=== PATIENT | female | born 1980 | race Caucasian/White ===

== ENCOUNTER 2018-08-07 13:04 | Emergency (ER) | payer OTHER ==
[2018-08-07 13:07] VITALS: RESP 16
[2018-08-07 13:50] LABS: Anisocytosis Slight; Basophils % (A) 0 %; Eosinophils # (A) 0.1 k/uL (0-0.7); Eosinophils % (A) 1 %; HCT 32.8 % (34.0-46.0); HGB 10.4 gm/dL (11.4-16.0); Lymphocytes # (A) 0.8 k/uL (1.0-4.8); Lymphocytes % (A) 14 %; MCH 27.7 pg (25.0-35.0); MCHC 31.8 g/dL (31.0-37.0); Monocytes # (A) 0.3 k/uL (0-1.0); Monocytes % (A) 5 %; Neutrophils # (A) 4.8 k/uL (1.3-7.7); Neutrophils % (A) 79 %; Platelet Count 382 k/uL (150-450); RBC 3.77 m/uL (3.80-5.40); RDW 19.3 % (11.5-15.5); WBC 6.1 k/uL (3.8-10.6)
[2018-08-07 14:00] LABS: ALT 10 U/L (9-52); AST 13 U/L (14-36); African American GFR (CKD) >90 (>60 ml/min/1.73 sqM); Albumin 2.3 g/dL (3.5-5.0); Alkaline Phosphatase 88 U/L (38-126); Amylase <30 U/L (30-110); Anion Gap 4 mmol/L; Blood Urea Nitrogen 14 mg/dL (7-17); Calcium 8.1 mg/dL (8.4-10.2); Carbon Dioxide 26 mmol/L (22-30); Chloride 107 mmol/L (98-107); Glucose 120 mg/dL (74-99); Lipase 200 U/L (23-300); Sodium 137 mmol/L (137-145); Total Bilirubin 0.1 mg/dL (0.2-1.3); Total Protein 5.1 g/dL (6.3-8.2)
[2018-08-07] MEDS ORDERED: HYDROmorphone 0.5 MG/0.5 ML SYRINGE IVP STA ×2 (14:40→15:53)
[2018-08-07 15:08] LABS: Appearance,Urine Cloudy (Clear); Bilirubin,Urine Negative (Negative); Blood,Urine Negative (Negative); Color,Urine Yellow; Glucose,Urine (UA) Negative (Negative); Ketones,Urine Trace (Negative); Leukocyte Esterase,Urine Negative (Negative); Mucus,Urine Many /hpf; Nitrite,Urine Negative (Negative); Protein,Urine 1+ (Negative); RBC,Urine 24 /hpf (0-5); Squamous Epithelial Cell,Urine 1 /hpf (0-4); WBC,Urine 4 /hpf (0-5)
--- NOTE | 2018-08-07 15:53 | CT ---
EXAMINATION TYPE: CT abdomen pelvis w con DATE OF EXAM: 08/07/2018 COMPARISON: 08/03/2018 HISTORY: Abdominal pain, nausea and vomiting. History of pancreatitis and failed gastric bypass. CT DLP: 477.7 mGycm CONTRAST: CT scan of the abdomen and pelvis is performed without Oral Contrast and with IV Contrast, patient in jected with 100 mL of Isovue 300. FINDINGS: LUNG BASES-: Persistent but much improved basilar infiltrates. LIVER/GB: Cholecystectomy clips are in place. There is evidence of hepatomegaly. No space occupyin g hepatic lesion. Biliary tree is of normal caliber. PANCREAS: No inflammation. No distinct mass. SPLEEN: No splenic enlargement. No lesion seen. ADRENALS: No nodule. No thickening. KIDNEYS/BLADDER: No hydronephrosis. No nephrolithiasis. No distinct renal mass. Urinary bladder g rossly unremarkable. BOWEL: Oracio-en-Y gastric bypass noted. Lack of GI contrast limits evaluation. No evidence for free ai r or abscess. No obstructive changes seen with absolute certainty. Nonvisualization of the appendix. Normal bowel caliber. No inflammation. Moderate fecal stasis rectosigmoid region. GENITAL ORGANS: No gross abnormality. LYMPH NODES: No greater than 1cm abdominal or pelvic lymph nodes are appreciated. AORTA: No significant abnormality. OSSEOUS STRUCTURES: No significant abnormality is seen. OTHER: Small amount of ascites within the abdomen. Subcutaneous anasarca changes persist although hav e improved. IMPRESSION: 1. Persistent but much improved basilar infiltrates. 2. Improving features of anasarca. 3. Hepatomegaly. 4. Moderate fecal stasis rectosigmoid region.
--- NOTE | 2018-08-07 16:22 | ED ---
General Adult HPI - General Chief complaint: Abdominal Pain Stated complaint: Abd pain Time Seen by Provider: 08/07/18 13:32 Source: patient, EMS, RN notes reviewed Mode of arrival: EMS Limitations: no limitations - History of Present Illness Initial comments: 38-year-old female with a past medical history pancreatitis, hypothyroidism, gastric bypass and alcohol abuse presents to the emergency department for abdominal pain. Patient states pain is mostly in the epigastric and left lower quadrant areas. States this feels similar to pancreatitis she had about a week ago. At that time lipase was 4554. Patient also had a pneumonia at that time and was treated with Zithromax. On presentation today patient states the pain feels similar. She is nauseous but has not vomited. Patient was recently also [place] for alcohol abuse apparently. Denies fevers or chills. States bowel movements are normal.Patient has no other complaints at this time including shortness of breath, chest pain, vomiting, headache, or visual changes. - Related Data Home Medications Medication Instructions Recorded Confirmed Acetaminophen [Tylenol Arthritis] 650 mg PO Q4H PRN 07/31/18 07/31/18 Buprenorphine HCl/Naloxone HCl 1 film SL DAILY 07/31/18 07/31/18 [Suboxone 4 mg-1 mg Sl Film] Calcium/Magnesium 1 tab PO TID PRN 07/31/18 07/31/18 Chlorpheniramine Maleate 4 mg PO Q4H PRN 07/31/18 07/31/18 [Chlor-Trimeton] Multivitamins, Thera [Multivitamin 1 tab PO DAILY 07/31/18 07/31/18 (formulary)] Mylanta 30 ml PO Q4H PRN 07/31/18 07/31/18 Ondansetron HCl [Zofran] 8 mg PO Q6H PRN 07/31/18 07/31/18 Ondansetron [Zofran] 4 mg IM Q6H PRN 07/31/18 07/31/18 Thiamine [Vitamin B-1] 100 mg PO DAILY 07/31/18 07/31/18 busPIRone HCl [Buspar] 10 mg PO TID PRN 07/31/18 07/31/18 traZODone HCL 150 mg PO HS 07/31/18 07/31/18 Previous Rx's Medication Instructions Recorded Azithromycin [Zithromax] 500 mg PO DAILY #5 tab 08/05/18 Cefdinir [Omnicef] 300 mg PO BID #10 cap 08/05/18 guaiFENesin [Mucinex] 600 mg PO Q12HR #30 tablet.er 08/05/18 Allergies Allergy/AdvReac Type Severity Reaction Status Date / Time ciprofloxacin [From Cipro] Allergy Dyspnea Verified 08/07/18 13:07 NSAIDS (Non-Steroidal AdvReac Abdominal Verified 08/07/18 13:07 Anti-Inflamma Pain Review of Systems ROS Statement: Those systems with pertinent positive or pertinent negative responses have been documented in the HPI. ROS Other: All systems not noted in ROS Statement are negative. Past Medical History Past Medical History: Thyroid Disorder Additional Past Medical History / Comment(s): Pancreatitis History of Any Multi-Drug Resistant Organisms: None Reported Past Surgical History: Appendectomy, Cholecystectomy, Hysterectomy, Tonsillectomy Additional Past Surgical History / Comment(s): gastric bypass, adminoplasty, sinus surgery, perforated bowel Past Anesthesia/Blood Transfusion Reactions: No Reported Reaction Past Psychological History: No Psychological Hx Reported Smoking Status: Current every day smoker Past Alcohol Use History: Abuse, Daily Past Drug Use History: Marijuana - Past Family History Mother Family Medical History: No Reported History Brother(s) Family Medical History: Hypertension General Exam Limitations: no limitations General appearance: alert, in no apparent distress Head exam: Present: atraumatic, normocephalic, normal inspection Eye exam: Present: normal appearance, PERRL, EOMI. Absent: scleral icterus, conjunctival injection, periorbital swelling ENT exam: Present: normal exam, mucous membranes moist Neck exam: Present: normal inspection, full ROM. Absent: tenderness, meningismus, lymphadenopathy Respiratory exam: Present: normal lung sounds bilaterally. Absent: respiratory distress, wheezes, rales, rhonchi, stridor Cardiovascular Exam: Present: regular rate, normal rhythm, normal heart sounds. Absent: systolic murmur, diastolic murmur, rubs, gallop, clicks GI/Abdominal exam: Present: soft, tenderness (Tenderness in the left lower quadrant.), normal bowel sounds. Absent: distended, guarding, rebound, rigid Neurological exam: Present: alert, oriented X3, CN II-XII intact Psychiatric exam: Present: normal affect, normal mood Course Vital Signs 08/07/18 08/07/18 08/07/18 13:04 15:12 16:00 Temperature 98.1 F 98.9 F Pulse Rate 79 67 Respiratory 16 16 16 Rate Blood Pressure 99/69 113/74 O2 Sat by Pulse 96 99 Oximetry Medical Decision Making - Medical Decision Making 38-year-old female with a past medical history of peritonitis, hypothyroidism, g astric bypass, chronic alcohol abuse presents to the emergency determine for abdominal pain. Patient states this most of the left lower quadrant. Patient states this is similar to the pancreatitis she had about a week ago. Was released about 2 days ago. On presentation patient states this pain feels similar. On exam patient has some left lower quadrant pain. No guarding or rebound. CBC shows a hemoglobin of 10.4 which is patient's baseline. CMP does show an albumin of 2.3 which is improved from patient's last result of 1.9 and likely secondary to malnutrition from alcoholism. Urine does show [address] abdomen and pelvis shows persistent but much improved basilar infilt rates. There is improving features of anasarca as well. Hepatomegaly. Moderate fecal stasis of the rectosigmoid colon. Patient's pain may be related to this. Recommended Miralax for this. Patient is apparently from [place] and will be discharged back. No opioid use. - Lab Data Result diagrams: 08/07/18 13:10 08/07/18 13:10 Lab Results 08/07/18 08/07/18 08/07/18 Range/Units 13:10 13:10 14:48 WBC 6.1 (3.8-10.6) k/uL RBC 3.77 L (3.80-5.40) m/uL Hgb 10.4 L (11.4-16.0) gm/dL Hct 32.8 L (34.0-46.0) % MCV 87.0 (80.0-100.0) fL MCH 27.7 (25.0-35.0) pg MCHC 31.8 (31.0-37.0) g/dL RDW 19.3 H (11.5-15.5) % Plt Count 382 (150-450) k/uL Neutrophils % 79 % Lymphocytes % 14 % Monocytes % 5 % Eosinophils % 1 % Basophils % 0 % Neutrophils # 4.8 (1.3-7.7) k/uL Lymphocytes # 0.8 L (1.0-4.8) k/uL Monocytes # 0.3 (0-1.0) k/uL Eosinophils # 0.1 (0-0.7) k/uL Basophils # 0.0 (0-0.2) k/uL Anisocytosis Slight Sodium 137 (137-145) mmol/L Potassium 4.0 (3.5-5.1) mmol/L Chloride 107 (98-107) mmol/L Carbon Dioxide 26 (22-30) mmol/L Anion Gap 4 mmol/L BUN 14 (7-17) mg/dL Creatinine 0.49 L (0.52-1.04) mg/dL Est GFR (CKD-EPI)AfAm >90 (>60 ml/min/1.73 sqM) Est GFR (CKD-EPI)NonAf >90 (>60 ml/min/1.73 sqM) Glucose 120 H (74-99) mg/dL Calcium 8.1 L (8.4-10.2) mg/dL Total Bilirubin 0.1 L (0.2-1.3) mg/dL AST 13 L (14-36) U/L ALT 10 (9-52) U/L Alkaline Phosphatase 88 (38-126) U/L Total Protein 5.1 L (6.3-8.2) g/dL Albumin 2.3 L (3.5-5.0) g/dL Amylase <30 L (30-110) U/L Lipase 200 (23-300) U/L Urine Color Urine Appearance (Clear) Urine pH (5.0-8.0) Ur Specific [place] (1.001-1.035) Urine Protein (Negative) Urine Glucose (UA) (Negative) Urine Ketones (Negative) Urine Blood (Negative) Urine Nitrite (Negative) Urine Bilirubin (Negative) Urine Urobilinogen (<2.0) mg/dL Ur Leukocyte Esterase (Negative) Urine RBC (0-5) /hpf Urine WBC (0-5) /hpf Ur Squamous Epith Cells (0-4) /hpf Urine Mucus (None) /hpf Urine HCG, Qual Not Detected (Not Detectd) 08/07/18 Range/Units 14:48 WBC (3.8-10.6) k/uL RBC (3.80-5.40) m/uL Hgb (11.4-16.0) gm/dL Hct (34.0-46.0) % MCV (80.0-100.0) fL MCH (25.0-35.0) pg MCHC (31.0-37.0) g/dL RDW (11.5-15.5) % Plt Count (150-450) k/uL Neutrophils % % Lymphocytes % % Monocytes % % Eosinophils % % Basophils % % Neutrophils # (1.3-7.7) k/uL Lymphocytes # (1.0-4.8) k/uL Monocytes # (0-1.0) k/uL Eosinophils # (0-0.7) k/uL Basophils # (0-0.2) k/uL Anisocytosis Sodium (137-145) mmol/L Potassium (3.5-5.1) mmol/L Chloride (98-107) mmol/L Carbon Dioxide (22-30) mmol/L Anion Gap mmol/L BUN (7-17) mg/dL Creatinine (0.52-1.04) mg/dL Est GFR (CKD-EPI)AfAm (>60 ml/min/1.73 sqM) Est GFR (CKD-EPI)NonAf (>60 ml/min/1.73 sqM) Glucose (74-99) mg/dL Calcium (8.4-10.2) mg/dL Total Bilirubin (0.2-1.3) mg/dL AST (14-36) U/L ALT (9-52) U/L Alkaline Phosphatase (38-126) U/L Total Protein (6.3-8.2) g/dL Albumin (3.5-5.0) g/dL Amylase (30-110) U/L Lipase (23-300) U/L Urine Color Yellow Urine Appearance Cloudy H (Clear) Urine pH 8.0 (5.0-8.0) Ur Specific [place] 1.030 (1.001-1.035) Urine Protein 1+ H (Negative) Urine Glucose (UA) Negative (Negative) Urine Ketones Trace H (Negative) Urine Blood Negative (Negative) Urine Nitrite Negative (Negative) Urine Bilirubin Negative (Negative) Urine Urobilinogen 2.0 (<2.0) mg/dL Ur Leukocyte Esterase Negative (Negative) Urine RBC 24 H (0-5) /hpf Urine WBC 4 (0-5) /hpf Ur Squamous Epith Cells 1 (0-4) /hpf Urine Mucus Many H (None) /hpf Urine HCG, Qual (Not Detectd) Disposition Clinical Impression: Abdominal pain, Chronic alcoholism Disposition: HOME SELF-CARE Condition: Good Instructions (If sedation given, give patient instructions): Abdominal Pain (ED) Additional Instructions: Try to take Miralax for constipation. Please follow up with primary care as well as your surgeon as soon as possible. Please return here to the emergency department if you have any worsening symptoms or are unable to keep food down. Is patient prescribed a controlled substance at d/c from ED?: No Referrals: Nonstaff,Physician [Primary Care Provider] - 1-2 days Danyelle Jaramillo MD [REFERRING] - 1-2 days Time of Disposition: 16:44
[2018-08-07 17:33] VITALS: BP 109/62; PULSE 72; TEMP 97.5
== END 2018-08-07 17:20 | disposition home or self-care (01) ==
LOC: EC 13:04
DX: F10.20 Alcohol dependence, uncomplicated (principal); R10.9 Unspecified abdominal pain; E03.9 Hypothyroidism, unspecified; R16.0 Hepatomegaly, not elsewhere classified; R91.8 Other nonspecific abnormal finding of lung field; F17.200 Nicotine dependence, unspecified, uncomplicated; Z79.899 Other long term (current) drug therapy; Z88.1 Allergy status to other antibiotic agents; Z88.6 Allergy status to analgesic agent; Z98.84 Bariatric surgery status; Z90.89 Acquired absence of other organs; Z90.49 Acquired absence of other specified parts of digestive tract; Z90.710 Acquired absence of both cervix and uterus
CPT/HCPCS: 36415; 80053; 82150; 83690; 85025; 81001; 81025; 74177; 99284; 96374; 96376; J1170; Q9967